=== PATIENT | male | born 1995 | race Caucasian/White ===

== ENCOUNTER 2021-01-27 18:36 | Emergency (ER) | payer SELFPAY ==
[~2021-01-27] VITALS: Ht 165.1 cm; Wt 79.7 kg
[2021-01-27 18:54] VITALS: BP 125/78
--- NOTE | 2021-01-27 19:16 | NUR ---
pt here for bilateral abcess on thighs. redness and tenderness noted, skin not raised. pt admits to injecting heroin for the past year. pt on continuous pulse ox, resting comfortably in gurney, erp at bedside
[2021-01-27] MEDS ORDERED: LIDOCAINE-MPF 1%, 5ML ONE (19:29)
[2021-01-27] MEDS ORDERED: CLINDAMYCIN 300 MG CAPSULE ONE (19:29)
[2021-01-27] MEDS ORDERED: CLINDAMYCIN 300 MG CAPSULE PO ONE (19:30)
[2021-01-27] MEDS ORDERED: LIDOCAINE-MPF 1%, 5ML INFIL ONE (19:30)
--- NOTE | 2021-01-27 19:33 | NUR ---
no i/d per erp. abx here and then prescription to go. resources provided as well
--- NOTE | 2021-01-27 19:45 | NUR ---
Patient/Caregiver given discharge instructions and they have confirmed that they understand the instructions. Patient ambulatory with steady gait.
== END 2021-01-27 19:52 | disposition home or self-care (01) ==
LOC: ED 19:20
DX: L03.116 Cellulitis of left lower limb (principal); L03.115 Cellulitis of right lower limb; F15.10 Other stimulant abuse, uncomplicated; F11.10 Opioid abuse, uncomplicated; X58.XXXA Exposure to other specified factors, initial encounter; Y93.89 Activity, other specified; Y92.89 Other specified places as the place of occurrence of the external cause; Y99.8 Other external cause status
CPT/HCPCS: 99283